=== PATIENT | female | born 1955 | race Two or more races ===

== ENCOUNTER 2018-04-27 09:34 | Outpatient (CLI) | payer OTHER | END 2018-04-27 09:47 | disposition home or self-care (01) | LOC: MAMO-SONO 09:34 | DX: Z12.31 Encounter for screening mammogram for malignant neoplasm of breast (principal); N60.11 Diffuse cystic mastopathy of right breast ==

== ENCOUNTER 2023-12-02 08:15 | Outpatient (CLI) | payer OTHER, BC | END 2023-12-02 08:22 | disposition home or self-care (01) | LOC: MAMO-SONO 08:15 | PROVIDERS: ATTEND Internal Medicine Geriatric Medicine | DX: R92.30 Dense breasts, unspecified (principal); Z80.3 Family history of malignant neoplasm of breast; Z12.31 Encounter for screening mammogram for malignant neoplasm of breast ==

== ENCOUNTER 2025-01-12 07:19 | Outpatient (CLI) | payer OTHER | END 2025-01-12 07:32 | disposition home or self-care (01) | LOC: MAMO-SONO 07:19 | DX: N64.4 Mastodynia (principal); Z12.31 Encounter for screening mammogram for malignant neoplasm of breast ==